=== PATIENT | male | born 1945 ===

== ENCOUNTER 2019-03-04 06:42 | Day surgery (SDC) | payer OTHER ==
[~2019-03-04] VITALS: Ht 180.3 cm; Wt 108.0 kg
[~2019-03-04 06:42] MED LIST: ALLOPURINOL100 MG PO; CLOTRIMAZOLE; IBUPROFEN200 M1 PO; LEVOTHYROXINE100 MCG PO; LISINOPRIL10 MG PO; PROSCAR5 MG PO; SIMVASTATIN20 MG PO; ZANTAC150 MG PO
--- NOTE | 2019-03-04 09:03 | NUR ---
03/04/19 0903 Kandy Barahona 0857- PT TO PACU IN LL POSITION. EYES OPEN, DROWSY, RESPONDS APPROPRIATELY TO QUESTIONS WITH HEAD NODS. BREATHING EASY AND UNLABORED. SP02 98% ON 3 L O2 VIA NC. DENIES PAIN AND NAUSEA. PASSING GAS. 0903- PT CONTINUES TO BREATHE EASILY WITHOUT DIFFICULTY. O2 TITRATED TO RA. SPOX >95%. PT CONTINUES TO DENY PAIN NAUSEA AND DIZZINESS. PASSING GAS.
--- NOTE | 2019-03-04 11:11 | OR ---
[facility] [address], [place] [address] Signed DATE OF OPERATION: 03/04/2019 SURGEON: Yesy Buchanan MD PREOPERATIVE DIAGNOSIS: Screening. POSTOPERATIVE DIAGNOSES: 1. A 15 mm polyp at base of cecum. 2. A 5 mm polyp at mid right colon. 3. A 5 mm polyp at 75 cm. 4. 5 mm polyps x2 at 65 cm (tattoo). 5. A 10 mm polyp, right posterior rectum (7 cm, tattoo). PROCEDURES: 1. Colonoscopy, snare polypectomy, hot biopsy and injection of tattoo. 2. Rigid proctoscopy. ESTIMATED BLOOD LOSS: None. INDICATIONS: Zeke is a 73-year-old gentleman, asked to see me for his initial screening colonoscopy. He has no lower GI complaints. There is no family history of colon cancer or polyps. In the office, I had given Zeke a pamphlet on colonoscopy. We looked at that together along with the risks including, but not limited to gas, bloating, crampy abdominal pain, bleeding, perforation requiring surgery, and missed diagnosis. We also discussed the need for IV conscious sedation. He had expressed understanding and wished to proceed. PROCEDURE NOTE: Zeke was taken into our endoscopy suite and placed in the left lateral decubitus position. He was given a total of 10 mg Versed and 200 mcg fentanyl to cover the case. A digital rectal exam was performed and he has good sphincter tone. No external hemorrhoids. The prostate gland is absent. The adult colonoscope was introduced and advanced under direct visualization of camera into the cecum itself. His prep was good. We used a cold snare initially and tried to remove the polyp in the base of the cecum just to the side of the appendiceal orifice. That did not work and we had used a cautery. We could easily see the [place]'s foot and the ileocecal valve. We have taken multiple pictures throughout for photodocumentation. There was one additional piece at Electronically Signed By: YESY BUCHANAN MD 03/04/19 1111 PATIENT NAME: ZEKE HAYS OPERATIVE REPORT DATE OF : 43 REPORT #: [id number] PHYSICIAN: YESY BUCHANAN MD PCP: KENJI TOPETE MD REPORT IS CONFIDENTIAL AND NOT TO BE RELEASED WITHOUT AUTHORIZATION [facility] [address], [place] [address] Signed the bottom of that area that we removed with a hot biopsy forceps and sent to pathology as well. As the scope was withdrawn, we removed the 5 mm polyp at 75 cm with hot biopsy forceps. There was also one in the mid right colon. It was also removed with hot biopsy forceps. Back at 65 cm were two 5 mm polyps. We took one off the snare and it was lost to retrieval. The other was removed with hot biopsy forceps and sent to Pathology. We did put a tattoo at 65 cm. He did have diverticula in the right colon and just a few in his left colon as well. Not so much in the sigmoid colon. The rectum was unremarkable except he did have a polyp just above the anal canal, I could palpate with my index finger. It was posterior and somewhat to the right. We removed it with the snare and then cauterized the base and injected a tattoo. After this, the scope had been retroflexed and there was no additional pathology noted above the anal canal. We then placed the rigid proctoscope and we could see the tattoo at 7 cm from the anal verge posteriorly and just slightly to the right. After this, the gas was evacuated through the rigid proctoscope and the rigid proctoscope was then removed. Zeke tolerated procedure quite well. RECOMMENDATIONS: I will see Zeke back in my office in 7 to 14 days to review his results. He might consider a short interval followup colonoscopy somewhere between 12 and 18 months. Yesy Buchanan MD ALB/MODL /[id number] cc: MD Yesy Aponte MD Copies: KENJI TOPETE MD, ANDREW L MD ~ Electronically Signed By: YESY BUCHANAN MD 03/04/19 1111 PATIENT NAME: ZEKE HAYS OPERATIVE REPORT DATE OF : 43 REPORT #: [id number] PHYSICIAN: YESY BUCHANAN MD PCP: KENJI TOPETE MD REPORT IS CONFIDENTIAL AND NOT TO BE RELEASED WITHOUT AUTHORIZATION
== END 2019-03-04 09:43 | disposition home or self-care (01) ==
LOC: OPS 06:42 → DS 06:42 → OPS 08:15
PROVIDERS: Colon & Rectal Surgery
PROC: 0DBK8ZZ Excision of Ascending Colon, Via Natural or Artificial Opening Endoscopic (ICD-10-PCS; 2019-03-04)
PROC: 0DBE8ZZ Excision of Large Intestine, Via Natural or Artificial Opening Endoscopic (ICD-10-PCS; 2019-03-04)
PROC: 0DBH8ZZ Excision of Cecum, Via Natural or Artificial Opening Endoscopic (ICD-10-PCS; 2019-03-04)
PROC: 0DBP8ZZ Excision of Rectum, Via Natural or Artificial Opening Endoscopic (ICD-10-PCS; 2019-03-04)
PROC: 3E0H8GC Introduction of Other Therapeutic Substance into Lower GI, Via Natural or Artificial Opening Endoscopic (ICD-10-PCS; principal; 2019-03-04 08:15)
DX: Z12.11 Encounter for screening for malignant neoplasm of colon (principal); D12.0 Benign neoplasm of cecum; D12.2 Benign neoplasm of ascending colon; D12.6 Benign neoplasm of colon, unspecified; K62.1 Rectal polyp; I10 Essential (primary) hypertension; K21.9 Gastro-esophageal reflux disease without esophagitis; E78.5 Hyperlipidemia, unspecified; E66.9 Obesity, unspecified; E03.9 Hypothyroidism, unspecified; M19.90 Unspecified osteoarthritis, unspecified site; M10.9 Gout, unspecified; Z68.33 Body mass index [BMI] 33.0-33.9, adult
CPT/HCPCS: 99153; G0500; J2250; J3010